=== PATIENT | male | born 1950 | race Caucasian/White ===

== ENCOUNTER 2017-10-19 15:41 | Observation (INO) ==
[2017-10-19] MEDS ORDERED: Aspirin 81 MG TAB.CHEW PO ONE (16:08)
[2017-10-19] MEDS ORDERED: Nitroglycerin 0.4 MG TAB.SUBL SL ONE (16:08)
--- NOTE | 2017-10-19 16:47 | Emergency Department Note ---
Disposition Clinical Impression: Unstable angina pectoris Disposition: Admitted As Inpatient Condition: Good Chest Pain HPI - General Chief Complaint: ED Chest Pain Stated Complaint: chest pain, weakness Time Seen by Provider: 10/19/17 15:59 Source: patient, family Limitations: no limitations Vital Signs Reviewed: Yes Nursing Notes Reviewed: Yes - History of Present Illness HPI Narrative: 67-year-old male with past history of diabetes, hypertension, thyroid disease, and CAD status post 2 drug-eluting stents placed on 01/23/17, presents to the emergency department with complaints of extreme exhaustion for several weeks and midsternal, intermittent chest pressure that began 2 days ago. He reports that the chest pressure is relieved when he takes nitroglycerin and only wants for a few minutes. The pain came on when he was at wrestling in bed. It is associated with diaphoresis, however there is no nausea, vomiting, or radiation of pain. Denies lower extremity edema. He is currently taking Plavix. He and his reporting a history of extreme exhaustion and generalized weakness for the past several weeks, with an unknown specific time of onset. reports that he will go to bed at 10 PM at night but then not get out of bed until 1 PM in the afternoon the next day. He reports that he just does not feel like getting up and doing anything at all. When he does get up and move his fatigue worsens, and he becomes more short of breath. He denies recent illness, fevers , chills, syncope, cough, abdominal pain, diarrhea, constipation, or dysuria. Severity scale (1-10): 0 - Related Data Home Medications Medication Instructions Recorded Confirmed Aripiprazole [Abilify] 7.5 mg PO DAILY 01/23/17 10/20/17 Calcium Carbonate/Vitamin D3 1 each PO DAILY 01/23/17 10/20/17 [Oyster Shell Calcium-Vit D Tab] Lactobacillus Acidophilus 1 each PO DAILY 01/23/17 10/20/17 [Acidophilus Lactobacillus] Levothyroxine [Synthroid] [place] [address]/23/17 10/20/17 Metformin HCl [Fortamet] 1,000 mg PO DAILY 01/23/17 10/20/17 Metoprolol Succinate 25 mg PO DAILY 01/23/17 10/20/17 Omeprazole 20 mg PO DAILY 01/23/17 10/20/17 Oxycodone HCl [Oxaydo] 10 mg PO QID 01/23/17 10/20/17 glipiZIDE [Glipizide ER] 10 mg PO DAILY 01/23/17 10/20/17 Duloxetine HCl [Cymbalta] 120 mg PO DAILY 10/19/17 10/20/17 Gemfibrozil [Lopid] 600 mg PO BID 10/19/17 10/20/17 Baclofen [Lioresal] 10 mg PO QID PRN 10/20/17 10/20/17 Lactobacillus Acidophilus 1 cap PO BID 10/20/17 10/20/17 [Acidophilus Lactobacillus] Lisinopril-HCTZ 10-12.5 [Prinzide 1 tab PO DAILY 10/20/17 10/20/17 10-12.5] Nitroglycerin [Nitrostat] 0.4 mg SL Q5M PRN 10/20/17 10/20/17 Previous Rx's Medication Instructions Recorded Acetaminophen [Tylenol] 650 mg PO Q6HR PRN #0 tablet 01/24/17 Aspirin 81 mg PO DAILY #30 tab.chew 01/24/17 Clopidogrel [Plavix] 75 mg PO DAILY #30 tablet 01/24/17 Allergies Allergy/AdvReac Type Severity Reaction Status Date / Time midazolam [From Versed] AdvReac See Verified 01/23/17 07:45 Comments morphine AdvReac Nausea Verified 01/23/17 07:45 All systems ED: reviewed and negative except as stated. Review of Systems: As Per HPI Chest Pain PMH - Past Medical History Medical history: Reports: diabetes, hypertension, thyroid disease Psychiatric history: Reports: anxiety, depression - Social History Smoking Status: Former smoker Alcohol use: Reports: none Drug use: Reports: none Physical Exam - General Limitations: no limitations General appearance: alert, in no apparent distress - Head Head exam: atraumatic, normocephalic - Eye Eye exam: Present: normal appearance, EOMI - ENT ENT exam: mucous membranes dry - Chest Chest inspection: Present: symmetric chest wall rise - Respiratory Respiratory exam: Present: normal lung sounds bilaterally - Cardiovascular Cardiovascular exam: Present: regular rate, normal rhythm, +S1, +S2 - Abdominal Exam Abdominal exam: Present: soft, Non-Tender, normal bowel sounds - Extremities Exam Extremities exam: Present: normal inspection, normal capillary refill. Absent: tenderness, pedal edema - Neurological Exam Neurological exam: Present: alert, oriented X3 - Skin Skin exam: Present: warm, dry, intact Course Vital Signs Temperature 98.5 F 10/19/17 15:47 Pulse Rate 108 10/19/17 15:47 Respiratory Rate 18 10/19/17 15:47 Blood Pressure 114/79 10/19/17 15:47 O2 Sat by Pulse Oximetry 98 10/19/17 15:47 Temperature 98.4 F 10/20/17 15:32 Pulse Rate 92 10/20/17 15:32 Respiratory Rate 16 10/20/17 15:32 Blood Pressure 119/76 10/20/17 15:32 O2 Sat by Pulse Oximetry 96 10/20/17 15:32 Oxygen Delivery Oxygen Delivery Room Air Chest Pain - MDM Narrative Medical decision making narrative: Patient's symptoms consistent with unstable angina, and concerning for worsening of his cardiac status with the amount of fatigue he has been feeling over the past several weeks. He received aspirin here in the ED. Nitroglycerin was ordered but not given because the patient was no longer complaining of active chest pain. ECG shows sinus tachycardia with first- degree heart block, no ST changes or T-wave changes, normal QRS morphology. Troponin negative. CBC, coags, and CMP are all unremarkable. Patient will be admitted to the hospital for further evaluation and treatment. - Lab Data Lab results reviewed: Yes I reviewed the patient's lab results. Result diagrams: 10/20/17 06:14 10/20/17 06:14 Lab Results 10/19/17 10/19/17 10/19/17 Range/Units 16:26 16:26 16:26 WBC 8.3 (4.3-11.1) K/mcL RBC 4.82 (4.19-5.50) M/mcL Hgb 15.3 (12.9-16.9) g/dL Hct 44.9 (37.5-50.1) % MCV 93.2 (83.0-100.0) fL MCH 31.7 (28.0-33.3) pg MCHC 34.1 (31.6-35.5) g/dL RDW 13.0 (11.5-14.5) % Plt Count 307 (140-400) K/mcL MPV 9.4 (9.4-12.4) fL Immature Gran % 0.5 (0-4) % Seg Neutrophils % 66.8 % Lymphocytes % 26.0 % Monocytes % 5.7 % Eosinophils % 0.6 % Basophils % 0.4 % Neutrophils # 5.5 (1.6-8.9) K/mcL Lymphocytes # 2.2 (0.6-4.6) K/mcL Monocytes # 0.5 (0.0-1.3) K/mcL Eosinophils # 0.1 (0.0-0.6) K/mcL Basophils # 0.0 (0.0-0.2) K/mcL PT 12.0 (9.4-12.1) Seconds INR 1.1 APTT 32.9 (26.0-36.0) Seconds Sodium (136-145) mEq/L Potassium (3.5-5.1) mEq/L Chloride (98-107) mEq/L Carbon Dioxide (23-29) mEq/L BUN (8-23) mg/dL Creatinine (0.70-1.30) mg/dL Est GFR ( Amer) (> 60) Est GFR (Non-Af Amer) (> 60) BUN/Creatinine Ratio (6-26) Glucose (70-105) mg/dL Calculated Osmolality (280-300) Calcium (8.6-10.3) mg/dL Total Bilirubin (0.3-1.0) mg/dL Direct Bilirubin (0.0-0.2) mg/dL Indirect Bilirubin (0.0-1.2) mg/dL AST (13-39) Units/L ALT (7-52) Units/L Alkaline Phosphatase (34-104) Units/L Troponin I (< 0.04) ng/mL B-Natriuretic Peptide 9 (Less than 100) pg/mL Serum Total Protein (6.4-8.9) g/dL Albumin (3.5-5.7) g/dL Globulin (2.4-3.5) g/dL Albumin/Globulin Ratio (1.1-2.2) Lipase (11-82) Units/L Urine Color (Yellow) Urine Clarity (Clear) Urine pH (5.0-8.0) pH Units Ur Specific [place] (1.010-1.025) Urine Protein (Neg-Trace) mg/dL Urine Glucose (UA) (Normal) mg/dL Urine Ketones (Negative) mg/dL Urine Blood (Negative) Urine Nitrite (Negative) Urine Bilirubin (Negative) Urine Urobilinogen (Normal) mg/dL Ur Leukocyte Esterase (Negative) Ur Culture Indicated? (NO) 10/19/17 10/19/17 Range/Units 16:26 18:15 WBC (4.3-11.1) K/mcL RBC (4.19-5.50) M/mcL Hgb (12.9-16.9) g/dL Hct (37.5-50.1) % MCV (83.0-100.0) fL MCH (28.0-33.3) pg MCHC (31.6-35.5) g/dL RDW (11.5-14.5) % Plt Count (140-400) K/mcL MPV (9.4-12.4) fL Immature Gran % (0-4) % Seg Neutrophils % % Lymphocytes % % Monocytes % % Eosinophils % % Basophils % % Neutrophils # (1.6-8.9) K/mcL Lymphocytes # (0.6-4.6) K/mcL Monocytes # (0.0-1.3) K/mcL Eosinophils # (0.0-0.6) K/mcL Basophils # (0.0-0.2) K/mcL PT (9.4-12.1) Seconds INR APTT (26.0-36.0) Seconds Sodium 133 L (136-145) mEq/L Potassium 3.8 (3.5-5.1) mEq/L Chloride 99 (98-107) mEq/L Carbon Dioxide 24 (23-29) mEq/L BUN 19 (8-23) mg/dL Creatinine 0.98 (0.70-1.30) mg/dL Est GFR ( Amer) > 60 (> 60) Est GFR (Non-Af Amer) > 60 (> 60) BUN/Creatinine Ratio 19 (6-26) Glucose 226 H (70-105) mg/dL Calculated Osmolality 285 (280-300) Calcium 10.0 (8.6-10.3) mg/dL Total Bilirubin 0.9 (0.3-1.0) mg/dL Direct Bilirubin 0.3 H (0.0-0.2) mg/dL Indirect Bilirubin 0.6 (0.0-1.2) mg/dL AST 32 (13-39) Units/L ALT 35 (7-52) Units/L Alkaline Phosphatase 48 (34-104) Units/L Troponin I < 0.03 (< 0.04) ng/mL B-Natriuretic Peptide (Less than 100) pg/mL Serum Total Protein 7.7 (6.4-8.9) g/dL Albumin 4.6 (3.5-5.7) g/dL Globulin 3.1 (2.4-3.5) g/dL Albumin/Globulin Ratio 1.5 (1.1-2.2) Lipase 3 L (11-82) Units/L Urine Color Yellow (Yellow) Urine Clarity Clear (Clear) Urine pH 6.0 (5.0-8.0) pH Units Ur Specific [place] 1.020 (1.010-1.025) Urine Protein Negative (Neg-Trace) mg/dL Urine Glucose (UA) Normal (Normal) mg/dL Urine Ketones Negative (Negative) mg/dL Urine Blood Negative (Negative) Urine Nitrite Negative (Negative) Urine Bilirubin Negative (Negative) Urine Urobilinogen Normal (Normal) mg/dL Ur Leukocyte Esterase Negative (Negative) Ur Culture Indicated? NO (NO) - EKG Data EKG attestation: Yes I reviewed and interpreted this EKG. EKG results narrative: ECG shows sinus tachycardia with first-degree heart block, no ST changes or T- wave changes, normal QRS morphology. Heart Score - Score History: Moderately Suspicious EKG: Normal Age: Greater than 65 Risk Factors: Equal/Greater than 3 risk factor or history of atherosclerotic disease Troponin: Less than normal limit HEART Score Total: 5 Attestation Statement - Attestation Attestation: I examined this patient and my medical decision-making was reviewed with the Resident Physician, Dr. Pinedo. I agree with the documented findings, disposition and treatment plan as described except to the extent set forth below. Pt is a 67 yo wm, hx of CAD with prior stents, and DM, HTN, presenting with exer dyspnea, worsening fatigue and chest pain with exertion. Chest pain free on arrival. I agree with pt's PE findings, VSS. EKG with no acute ischemia. CXR wnl. Labs wnl. Will admit for further eval.
[2017-10-19 16:50] LABS: Hematocrit 44.9 % (37.5-50.1); Hemoglobin 15.3 g/dL (12.9-16.9); Immature Granulocytes % 0.5 % (0-4); Mean Corpuscular HGB Conc 34.1 g/dL (31.6-35.5); Mean Corpuscular Hemoglobin 31.7 pg (28.0-33.3); Mean Corpuscular Volume 93.2 fL (83.0-100.0); Mean Platelet Volume 9.4 fL (9.4-12.4); Monocytes % 5.7 %; Platelet Count 307 K/mcL (140-400); Red Blood Count 4.82 M/mcL (4.19-5.50); Segmented Neutrophils % 66.8 %
[2017-10-19 16:51] LABS: Basophils % 0.4 %; Eosinophils # 0.1 K/mcL (0.0-0.6); Eosinophils % 0.6 %; Lymphocytes # 2.2 K/mcL (0.6-4.6); Monocytes # 0.5 K/mcL (0.0-1.3); Neutrophils # 5.5 K/mcL (1.6-8.9)
[2017-10-19 16:56] LABS: INR 1.1
[2017-10-19 16:58] LABS: Activated Partial Thrombo Time 32.9 Seconds (26.0-36.0)
[2017-10-19 17:20] LABS: Troponin I < 0.03 ng/mL (< 0.04)
[2017-10-19 17:22] LABS: Alanine Aminotransferase 35 Units/L (7-52); Albumin 4.6 g/dL (3.5-5.7); Albumin/Globulin Ratio 1.5 (1.1-2.2); Alkaline Phosphatase 48 Units/L (34-104); Aspartate Amino Transferase 32 Units/L (13-39); BUN/Creatinine Ratio 19 (6-26); Bilirubin,Direct 0.3 mg/dL (0.0-0.2); Bilirubin,Indirect 0.6 mg/dL (0.0-1.2); Bilirubin,Total 0.9 mg/dL (0.3-1.0); Blood Urea Nitrogen 19 mg/dL (8-23); Carbon Dioxide 24 mEq/L (23-29); Chloride 99 mEq/L (98-107); Globulin 3.1 g/dL (2.4-3.5); Glucose 226 mg/dL (70-105); Lipase 3 Units/L (11-82); Osmolality,Calculated 285 (280-300); Potassium 3.8 mEq/L (3.5-5.1); Sodium 133 mEq/L (136-145); Total Protein 7.7 g/dL (6.4-8.9); eGFR For African Americans > 60 (> 60); eGFR For Non-African Americans > 60 (> 60)
[2017-10-19 18:38] LABS: Bilirubin,Urine Negative (Negative); Blood,Urine Negative (Negative); Clarity,Urine Clear (Clear); Color,Urine Yellow (Yellow); Glucose,Urine (UA) Normal (Normal); Ketones,Urine Negative (Negative); Leukocyte Esterase,Urine Negative (Negative); Nitrite,Urine Negative (Negative); Protein,Urine Negative (Neg-Trace); Urobilinogen,Urine Normal (Normal)
[2017-10-19] MEDS ORDERED: Acetaminophen 325 MG TABLET PO PRN (22:54)
[2017-10-19] MEDS ORDERED: Naloxone 0.4 MG/ML INJ IVP PRN (22:54)
[2017-10-19] MEDS ORDERED: *HR* HYDROcodone/Acet 5/325 mg TABLET PO PRN (22:54)
[2017-10-19] MEDS ORDERED: Dextrose Gel 15 GM/37.5 ML TUBE PO PRN ×2 (23:05)
[2017-10-19] MEDS ORDERED: *HR* Dextrose 50 % in Water (Syg) 50 ML SYRINGE IVP PRN (23:05)
[2017-10-19] MEDS ORDERED: D5% in Water 1,000 ML IVC PRN (23:05)
--- NOTE | 2017-10-19 23:07 | Internal Med History&Physical ---
Date of Encounter: 10/19/17 Time of Encounter: 23:05 Assessment and Plan (1) Chest pain Current visit: Yes Status: Acute 67/male Multiple comorbid conditions. Admitted with chest pain. X-ray chest: No acute process EKG: Nonspecific ST-T changes Troponin: First set negative Cardiac catheterization: 01/2017: Stent with PTCA single major vessel proximal RCA, mid left circumflex, EF 50% Plan: Admitted as an observation. Aspirin/beta candie/cholesterol-lowering medication. Continue Plavix. Cycle troponin. Resume home medication. If troponin positive/his pain persistent: Consider calling cardiology tomorrow. I have examined this patient in 3 B 35 Plan of care explained to the patient at length. Patient verbalized understanding. Qualifiers: Chest pain type: unspecified Qualified Code(s): R07.9 - Chest pain, unspecified (2) Diabetes mellitus Current visit: Yes Status: Acute He is known to have diabetes mellitus. We will hold antidiabetic oral medications. We will follow the recommendations from subcutaneous insulin order set. 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 We will resume home medication. Qualifiers: Hypertension type: essential hypertension Qualified Code(s): I10 - Essential (primary) hypertension (4) Dyslipidemia Current visit: Yes Status: Acute Patient's lipid panel is scheduled to draw tomorrow morning. We will restart patient home medication. (5) DVT prophylaxis Current visit: Yes Status: Acute SCD Medical's in making: This patient is a moderate to severe risk of worsening in spite of being on appropriate medication due to the chronic underlying comorbid conditions. Internal Medicine - H&P: HPI Chief complaint: chest pain Admitted From: Emergency Dept Plans for Post Hospital Care: Home History of present illness: PCP: SUSANA Brizuela Cardiology: Dr Herbert Craven Brief PMH: DM, HTN, Dyslipidemia, CAD, Previous Stents placement. HPI: Patient was complaining of ongoing left-sided precordial chest pain. Pain was radiating to back. The pain is sharp in nature and associated with occasional nausea. Patient claims that he had a similar pain when he had a previously DE. Patient was concerned about this pain and that is why he decided to come to emergency room for further evaluation. Patient denies shortness of breath, abdominal pain, nausea, vomiting, dizziness and diarrhea. Workup in the emergency room: Patient was evaluated in the emergency room. Basic labs were drawn. X-ray chest was negative for any acute process. First troponin was negative. Reason for admission: Chest pain to rule out ACS. Heart score 4 Family history: Noncontributory Past Med Surg Social Fam HX - Past Medical History Medical history: diabetes, hypertension, thyroid disease Psychiatric history: anxiety, depression - Social History Smoking Status: Former smoker Smokeless Tobacco Status: No Alcohol use: none Drug use: none - Family History Father Living Status: Hx Family Cardiac Disorders: Yes (DE) Mother Living Status: Hx Family Cardiac Disorders: Yes Hx Family Neuromuscular Disorders: Yes (Stroke) Brother Living Status: Hx Family Endocrine Disorder: Yes (DM) Internal Medicine - H&P: Meds Aripiprazole [Abilify] 15 mg PO DAILY 01/23/17 [History] Calcium Carbonate/Vitamin D3 [Oyster Shell Calcium-Vit D Tab] 1 each PO DAILY [History] Gabapentin [Gralise] 600 mg PO BID 01/23/17 [History] Lactobacillus Acidophilus [Acidophilus Lactobacillus] 1 each PO DAILY 01/23/17 [ History] Levothyroxine [Synthroid] 50 mcg PO 0630 01/23/17 [History] Lisinopril-HCTZ 20-12.5 [Prinzide 20-12.5] 1 each PO DAILY 01/23/17 [History] Melatonin [Melatin] 10 mg PO HS 01/23/17 [History] Metformin HCl [Fortamet] 1,000 mg PO DAILY 01/23/17 [History] Metoprolol Succinate 25 mg PO DAILY 01/23/17 [History] Omeprazole 20 mg PO DAILY 01/23/17 [History] Oxycodone HCl [Oxaydo] 15 mg PO BID 01/23/17 [History] glipiZIDE [Glipizide ER] 10 mg PO DAILY 01/23/17 [History] Acetaminophen [Tylenol] 650 mg PO Q6HR PRN #0 tablet 01/24/17 [Rx] Aspirin 81 mg PO DAILY #30 tab.chew 01/24/17 [Rx] Clopidogrel [Plavix] 75 mg PO DAILY #30 tablet 01/24/17 [Rx] Aripiprazole [Abilify] 7.5 mg PO 10/19/17 [History] Duloxetine HCl [Cymbalta] 120 mg PO 10/19/17 [History] Gemfibrozil [Lopid] 600 mg PO BID 10/19/17 [History] 3 Allergy/AdvReac Type Severity Reaction Status Date / Time midazolam [From Versed] AdvReac See Verified 01/23/17 07:45 Comments morphine AdvReac Nausea Verified 01/23/17 07:45 All Systems PM: A 10-system review of systems was performed and is negative for pertinent findings except as documented above in the HPI. - Constitutional Constitutional: no chills, no fever(s), no night sweats - EENT Eyes: no change in vision, no discharge, no pain, no photophobia Ears: no ear discharge, no ear pain, no tinnitus Nose, mouth and throat: no dysphagia, no nasal discharge, no neck pain, no sore throat - Cardiovascular Cardiovascular ROS IM: chest pain, diaphoresis, lightheadedness, no dyspnea, no palpitations, no syncope - Respiratory Respiratory: no cough, no dyspnea, no wheezing, no excessive phlegm production - Gastrointestinal Gastrointestinal: no abdominal pain, no diarrhea, no hematemesis, no hematochezia, no melena, no nausea, no vomiting - Musculoskeletal Musculoskeletal ROS IM: no numbness, no tingling - Integumentary Integumentary IM: no rash, no unusual bruising - Neurological Neurological ROS: no confusion, no convulsions, no focal weakness, no numbness, no tingling, no tremor(s) - Hematologic/Lymphatic Hematologic/Lymphatic: no easy bruising - Constitutional Vitals: Temp Pulse Resp BP Pulse Ox 97.5 F L 91 15 102/61 95 10/19/17 23:03 10/19/17 23:03 10/19/17 23:03 10/19/17 23:03 10/19/17 23:03 General appearance: Present: A&O X 3, pleasant, no acute distress - Head Head exam: Present: atraumatic, normocephalic - Eye Eye exam: Present: PERRL, conjuntiva pink, sclera anicteric Pupils: Present: PERRL - Neck Neck exam general surgery: Present: supple, trachea midline. Absent: lymphadenopathy - Respiratory Respiratory exam: Present: CTAB. Absent: accessory muscle use, rales, rhonchi, wheezes - Cardiovascular Cardiovascular exam: Present: RRR, +S1, +S2. Absent: diastolic murmur, gallop, rubs, systolic murmur - GI/Abdominal GI/Abdominal exam: Present: normal bowel sounds, soft, no peritoneal signs. Absent: distended, tenderness - Extremities Exam Extremities exam: Present: warm, radial pulses palpable and symmetrical. Absent : calf tenderness, cyanotic, pedal edema - Neurological Exam Neurological exam: Present: CN II-XII intact, oriented X3, no focal deficits. Absent: pronater drift, facial droop, speech deficit - Skin Skin exam: Present: dry, intact Internal Med - H&P Results - Labs CBC & Chem 7: 10/19/17 16:26 10/19/17 16:26
[2017-10-19] MEDS: *HR* OxyCODONE Immed Rel 5 MG TABLET PO PRN (23:16)
[2017-10-19] MEDS ORDERED: ARIPiprazole 5 MG TABLET PO SCH (23:30)
[2017-10-19] MEDS ORDERED: Melatonin 3 MG TABLET PO SCH (23:30)
[2017-10-19] MEDS: Gabapentin 300 MG CAPSULE PO SCH (23:38)
[2017-10-20 08:08] LABS: INR 1.1; Prothrombin Time 11.5 Seconds (9.4-12.1)
[2017-10-20 08:11] LABS: Activated Partial Thrombo Time 31.8 Seconds (26.0-36.0)
[2017-10-20 08:14] LABS: Basophils % 0.3 %; Eosinophils # 0.1 K/mcL (0.0-0.6); Eosinophils % 1.4 %; Hematocrit 44.9 % (37.5-50.1); Hemoglobin 15.1 g/dL (12.9-16.9); Immature Granulocytes % 0.3 % (0-4); Lymphocytes # 4.4 K/mcL (0.6-4.6); Lymphocytes % 43.6 %; Mean Corpuscular HGB Conc 33.6 g/dL (31.6-35.5); Mean Corpuscular Hemoglobin 31.7 pg (28.0-33.3); Mean Corpuscular Volume 94.3 fL (83.0-100.0); Mean Platelet Volume 9.9 fL (9.4-12.4); Monocytes # 0.7 K/mcL (0.0-1.3); Monocytes % 7.3 %; Neutrophils # 4.8 K/mcL (1.6-8.9); Platelet Count 293 K/mcL (140-400); Red Blood Count 4.76 M/mcL (4.19-5.50); Red Cell Distribution Width 13.1 % (11.5-14.5); Segmented Neutrophils % 47.1 %
[2017-10-20] MEDS ORDERED: Lisinopril-HCTZ 20-12.5mg TABLET PO SCH (09:00)
[2017-10-20] MEDS ORDERED: Metoprolol XL (24 HR) Succ 25 MG TAB.ER.24H PO SCH (09:00)
[2017-10-20] MEDS ORDERED: Aspirin 81 MG TAB.CHEW PO SCH (09:00)
[2017-10-20] MEDS ORDERED: Lactobacillus 1 EACH CAP.SPRINK PO SCH (09:00)
[2017-10-20 09:08] LABS: Alanine Aminotransferase 31 Units/L (7-52); Albumin 4.3 g/dL (3.5-5.7); Albumin/Globulin Ratio 1.5 (1.1-2.2); Alkaline Phosphatase 49 Units/L (34-104); Aspartate Amino Transferase 29 Units/L (13-39); BUN/Creatinine Ratio 17 (6-26); Bilirubin,Total 0.7 mg/dL (0.3-1.0); Blood Urea Nitrogen 17 mg/dL (8-23); Carbon Dioxide 25 mEq/L (23-29); Chloride 101 mEq/L (98-107); Chol/HDL Ratio 7.4 (0-4.9); Cholesterol 177 mg/dL (< 200); Globulin 2.9 g/dL (2.4-3.5); Glucose 119 mg/dL (70-105); HDL Cholesterol 24 mg/dL (40-59); LDL Cholesterol,Calculated 123 mg/dL (0-99); Osmolality,Calculated 289 (280-300); Phosphorous 3.9 mg/dL (2.7-4.5); Potassium 3.6 mEq/L (3.5-5.1); Sodium 138 mEq/L (136-145); Total Protein 7.2 g/dL (6.4-8.9); Triglycerides 148 mg/dL (< 150); eGFR For African Americans > 60 (> 60); eGFR For Non-African Americans > 60 (> 60)
[2017-10-20] MEDS: Insulin LISPRO 300 UNITS/3 ML VIAL SQ SCH ×2 (10:22→11:24)
[2017-10-20] MEDS: Gabapentin 300 MG CAPSULE PO SCH (10:23)
[2017-10-20] MEDS ORDERED: Regadenoson 0.4 MG/5 ML SYRINGE IVP ONE (12:38)
[2017-10-20] MEDS: *HR* OxyCODONE Immed Rel 5 MG TABLET PO PRN (14:56)
[2017-10-20 15:35] VITALS: BP 119/76
--- NOTE | 2017-10-20 16:30 | Discharge Summary ---
- NOTES TO OUTPATIENT PROVIDER Notes to Outpatient Provider: Nuclear stress test is negative for ischemia or infarct. Patient and have many concerns about the way he is feeling. Defer to primary care physician and they have close follow-up with neurology regarding his other issues. Orders not resulted at time of discharge: Pending orders 10/20/17 08:27 NM blue perf SPECT multi [NM] Routine Date of Encounter: 10/20/17 Time of Encounter: 16:27 - Discharge Diagnosis (1) Chest pain Priority: Primary Status: Acute Comments: Patient with a known history of CAD with stents from January 2017. Troponins have been negative. Chest x-ray was negative. He does have comorbidities of diabetes and hypertension. Nuclear stress test was reviewed Pharmacological stress ECG is negative for ischemia at the level of the heart rate achieved. Gated EF equals 73%. Perfusion imaging was negative for ischemia or infarct. Patient discharged and will follow up with his primary care physician Qualifiers: Chest pain type: unspecified Qualified Code(s): R07.9 - Chest pain, unspecified (2) Diabetes mellitus Priority: Primary Status: Chronic Comments: Resume home medications Qualifiers: Diabetes mellitus type: type 2 Diabetes mellitus complication status: with unspecified complications Diabetes mellitus half-way insulin use: unspecified half-way insulin use status Qualified Code(s): E11.8 - Type 2 diabetes mellitus with unspecified complications (3) Dyslipidemia Priority: Primary Status: Chronic Comments: Continue patient's home medication Lipid panel reviewed with cholesterol 177, LDL 123, VLDL 30, HDL 24 and ratio 7.4 (4) Hypertension Priority: Primary Status: Chronic Comments: Blood pressure is stable continue her medications on discharge Qualifiers: Hypertension type: essential hypertension Qualified Code(s): I10 - Essential (primary) hypertension Hospital course: Mr. Maxwell is a 67 year old male admitted with chest pain with multiple comorbidities Ver[place]. X-ray of the chest with no acute process, EKG nonspecific ST-T changes. Troponins were negative. Cardiac catheterization from 01/2017 was stent with PTCA single major vessel proximal RCA, mid left circumflex, EF 50%. Continue aspirin and beta candie and cholesterol lowering medications. Continue Plavix. Discussed with cardiology and they recommended he go to stress that was obtained and was negative for infarct or ischemia and the patient was discharged home with a sister and said today his stress test was negative - Time Spent with Patient Total time spent providing and/or coordinating discharge services: Less than 30 minutes - Discharge Medications Home Medications: Aripiprazole [Abilify] 7.5 mg PO DAILY 01/23/17 [History] Calcium Carbonate/Vitamin D3 [Oyster Shell Calcium-Vit D Tab] 1 each PO DAILY [History] Lactobacillus Acidophilus [Acidophilus Lactobacillus] 1 each PO DAILY 01/23/17 [ History] Levothyroxine [Synthroid] 50 mcg PO 30 01/23/17 [History] Metformin HCl [Fortamet] 1,000 mg PO DAILY 01/23/17 [History] Metoprolol Succinate 25 mg PO DAILY 01/23/17 [History] Omeprazole 20 mg PO DAILY 01/23/17 [History] Oxycodone HCl [Oxaydo] 10 mg PO QID 01/23/17 [History] glipiZIDE [Glipizide ER] 10 mg PO DAILY 01/23/17 [History] Acetaminophen [Tylenol] 650 mg PO Q6HR PRN #0 tablet 01/24/17 [Rx] Aspirin 81 mg PO DAILY #30 tab.chew 01/24/17 [Rx] Clopidogrel [Plavix] 75 mg PO DAILY #30 tablet 01/24/17 [Rx] Duloxetine HCl [Cymbalta] 120 mg PO DAILY 10/19/17 [History] Gemfibrozil [Lopid] 600 mg PO BID 10/19/17 [History] Baclofen [Lioresal] 10 mg PO QID PRN 10/20/17 [History] Lactobacillus Acidophilus [Acidophilus Lactobacillus] 1 cap PO BID 10/20/17 [ History] Lisinopril-HCTZ 10-12.5 [Prinzide 10-12.5] 1 tab PO DAILY 10/20/17 [History] Nitroglycerin [Nitrostat] 0.4 mg SL Q5M PRN 10/20/17 [History] Allergies/Adverse Reactions: 3 Allergy/AdvReac Type Severity Reaction Status Date / Time midazolam [From Versed] AdvReac See Verified 01/23/17 07:45 Comments morphine AdvReac Nausea Verified 01/23/17 07:45 Date of admission: 10/19/17 19:36 Primary care physician: [facility] Discharging clinician: dominique fletcher Anticipated date of discharge: 10/20/17 - Constitutional Vitals: Temp Pulse Resp BP Pulse Ox 98.4 F 92 16 119/76 96 10/20/17 15:32 10/20/17 15:32 10/20/17 15:32 10/20/17 15:32 10/20/17 15:32 General appearance: Present: cooperative, A&O X 3, pleasant, answers questions appropriately - Head Head exam: Present: atraumatic, normocephalic - Eye Eye exam: Present: PERRL, conjuntiva pink, sclera anicteric Pupils: Present: PERRL - Neck Neck exam general surgery: Present: supple, trachea midline. Absent: lymphadenopathy - Respiratory Respiratory exam: Present: CTAB. Absent: accessory muscle use, rales, rhonchi, wheezes - Cardiovascular Cardiovascular exam: Present: RRR, +S1, +S2. Absent: diastolic murmur, gallop, rubs, systolic murmur - GI/Abdominal GI/Abdominal exam: Present: normal bowel sounds, soft, no peritoneal signs. Absent: distended, tenderness - Extremities Exam Extremities exam: Present: warm, radial pulses palpable and symmetrical. Absent : calf tenderness, cyanotic, pedal edema - Neurological Exam Neurological exam: Present: CN II-XII intact, oriented X3, no focal deficits. Absent: pronater drift, facial droop, speech deficit - Skin Skin exam: Present: dry, intact, normal color, warm - Patient Status Disposition: Home, Self-Care Condition: Good Functional capacity at discharge: independent ambulation Overall status at discharge: patient is back to baseline - Discharge Instructions Instructions: Chest Pain (DC), Diabetes Mellitus Type 2 in Adults (DC), Chronic Hypertension (DC) Follow [facility]: [facility] [Primary Care Provider[facility] - - Diet and Activity Activity: increase activity as tolerated, resume usual activities as tolerated Diet: advance to your usual diet
--- NOTE | 2017-10-21 18:08 | Electrocardiograph Report ---
[place] [id number] Test Date: 2017-10-19 Pat Name: Anayeli Maxwell Department: 104 Room: 3B Gender: M [employer] A Driver: [facility] : 1950 Requested By: Abigail Narvaez Order Number: [id number] Reading MD: Rhianna Martinez Measurements Intervals [place] Rate: 105 P: 28 LA: 245 QRS: 30 QRSD: 96 T: 29 QT: 324 QTc: 385 Interpretive Statements SINUS TACHYCARDIA WITH FIRST DEGREE AV BLOCK Electronically Signed On 10-21-2017 18:07:20 EST by Rhianna Martinez
== END 2017-10-20 17:02 | disposition home or self-care (01) ==
LOC: 3BNU 15:41 → EMEROO 15:41 → 3BNU 20:15 → SUATTDRO 23:24 → 3BNU 10-20 15:12
PROVIDERS: ADMIT Internal Medicine; ATTEND Nurse Practitioner Family

== ENCOUNTER 2017-11-27 14:14 | Observation (INO) ==
[2017-11-27] MEDS ORDERED: 0.9 % Sodium Chloride 1,000 ML IVC ONE (14:16)
--- NOTE | 2017-11-27 14:20 | Emergency Department Note ---
Disposition Clinical Impression: Delirium, Generalized weakness Disposition: Admitted As Inpatient Condition: Undetermined [facility]Primary Care Provider[facility] - Forms: ED Satisfaction Letter Time of Disposition: 17:36 Neuro HPI - General Chief Complaint: ED Neuro Symptoms/Deficit Stated Complaint: weakness Time Seen by Provider: 11/27/17 14:16 Source: patient, family, EMS Mode of arrival: EMS Limitations: altered mental status Nursing Notes Reviewed: Yes Vital Signs Reviewed: Yes - History of Present Illness HPI Narrative: 67-year-old male with history of diabetes, hypertension, arrives to the emergency department with complaint of alteration in mentation, foul smelling urine and generalized weakness. The patient's significant other noted that this all began this morning unknown exactly what time and the patient was not quite acting right. He is having some difficulty expressing exactly the way he feels or what is going on but states from his that this is not unusual for him. She is more concerned because the patient is very tearful and does not really understand what is occurring at this time. He denies any chest pain, difficulty breathing, abdominal pain. The patient notes that he again is having some difficulty expressing what he wants to say but is still able to convey it. Patient denies any numbness, tingling, weakness on one side or the other, headache, fever, chills. His continues to note that the patient does have foul-smelling urine. - Related Data Home Medications: Home Medications Medication Instructions Recorded Confirmed Aripiprazole [Abilify] 7.5 mg PO DAILY 01/23/17 10/20/17 Calcium Carbonate/Vitamin D3 1 each PO DAILY 01/23/17 10/20/17 [Oyster Shell Calcium-Vit D Tab] Metformin HCl [Fortamet] 1,000 mg PO DAILY 01/23/17 10/20/17 Metoprolol Succinate 25 mg PO DAILY 01/23/17 10/20/17 Omeprazole 20 mg PO DAILY 01/23/17 10/20/17 Duloxetine HCl [Cymbalta] 120 mg PO DAILY 10/19/17 10/20/17 Gemfibrozil [Lopid] 600 mg PO BID 10/19/17 10/20/17 Lactobacillus Acidophilus 1 cap PO BID 10/20/17 10/20/17 [Acidophilus Lactobacillus] Lisinopril-HCTZ 10-12.5 [Prinzide 1 tab PO DAILY 10/20/17 10/20/17 10-12.5] Nitroglycerin [Nitrostat] 0.4 mg SL Q5M PRN 10/20/17 10/20/17 Aspirin Enteric Coated [Aspirin EC] 81 mg PO DAILY 11/27/17 11/27/17 Cholecalciferol (D-3) [Vitamin D] 1,000 unit PO DAILY 11/27/17 11/27/17 Donepezil [Aricept] 10 mg PO HS 11/27/17 11/27/17 Eszopiclone [Lunesta] 1 mg PO HS PRN 11/27/17 11/27/17 Gabapentin [Neurontin] 900 mg PO TID 11/27/17 11/27/17 Levothyroxine [Synthroid] 150 mcg PO QAM 11/27/17 11/27/17 Lidocaine 4% CRM (LMX) [Lmx 4] 1 appl TP DAILY PRN 11/27/17 11/27/17 Multivitamin [One Daily Essential] 1 each PO DAILY 11/27/17 11/27/17 OxyCODONE Immed Rel [Roxicodone 10 10 mg PO QID PRN 11/27/17 11/27/17 MG] Polyethylene Glycol 3350 [MiraLAX] 17 gm PO DAILY 11/27/17 11/27/17 Testosterone [Androgel] 40.5 mg TD AD 11/27/17 11/27/17 glipiZIDE [Glipizide] 10 mg PO QAM 11/27/17 11/27/17 Previous Rx's Medication Instructions Recorded Clopidogrel [Plavix] 75 mg PO DAILY #30 tablet 01/24/17 Allergies/Adverse Reactions: Allergies Allergy/AdvReac Type Severity Reaction Status Date / Time bupropion [From Wellbutrin] Allergy See Verified 11/27/17 16:47 Comments Zolpidem [From Ambien] Allergy See Verified 11/27/17 16:47 Comments midazolam [From Versed] AdvReac See Verified 01/23/17 07:45 Comments morphine AdvReac Nausea Verified 11/27/17 16:47 All systems ED: reviewed and negative except as stated. Constitutional: Reports: weakness. Denies: fever, chills ENT ED: Denies: congestion Cardiovascular: Denies: chest pain Respiratory: Denies: dyspnea Gastrointestinal: Denies: abdominal pain, nausea Genitourinary: Reports: dysuria, frequency. Denies: urgency, hematuria, testicular pain Musculoskeletal: Denies: back pain, neck pain, arthralgia, myalgia Integumentary: Denies: rash Neurological: Reports: weakness, confusion. Denies: headache, numbness, paresthesias, abnormal gait, vertigo Psychiatric: Reports: anxiety, depression. Denies: suicidal thoughts, homicidal thoughts, auditory hallucinations, visual hallucinations Past Medical History - Past Medical History Attestation: Yes The following information was validated with the patient. Source: patient, obtained from family Medical history: Reports: aortic aneurysm, diabetes, hypertension, thyroid disease Surgical history: Reports: non-contributory Psychiatric history: Reports: anxiety, depression - Social History Smoking Status: Former smoker Smokeless Tobacco Status: No Alcohol use: Reports: none Drug use: Reports: none Physical Exam - General Limitations: altered mental status (Mild) General appearance: alert, in no apparent distress, anxious - Head Head exam: atraumatic, normocephalic, normal inspection - Eye Eye exam: Present: normal appearance, PERRL, EOMI - ENT ENT exam: normal exam, normal oropharynx, mucous membranes moist - Neck Neck exam: Present: normal inspection, full ROM, trachea midline - Chest Chest inspection: Present: normal inspection, symmetric chest wall rise - Respiratory Respiratory exam: Present: normal lung sounds bilaterally - Cardiovascular Cardiovascular exam: Present: regular rate, normal rhythm - Abdominal Exam Abdominal exam: Present: soft, Non-Tender. Absent: tenderness, distention, guarding, rebound, rigidity - Extremities Exam Extremities exam: Present: normal inspection, full ROM. Absent: tenderness, pedal edema - Neurological Exam Neurological exam: Present: alert, oriented X3, CN II-XII intact. Absent: motor sensory deficit - Expanded Neurological Exam Patient oriented to: Present: person, place, time Speech: Present: fluid speech Cranial nerves: EOM function (II, III, IV, ): Normal, facial sensation (V): Normal, facial palsy (VII): Normal Motor strength - LUE: 4/5 Motor strength - RUE: 4/5 Motor strength - LLE: 4/5 Motor strength - RLE: 4/5 Sensory exam upper extremity: light touch: Normal Sensory exam lower extremity: light touch: Normal Coma Scale Eye Opening: Spontaneous Coma Scale Motor Response: Obeys Commands Coma Scale Verbal Response: Oriented Coma Scale Total: 15 - Skin Skin exam: Present: warm, dry, intact, normal color Course Vital Signs Temperature 97.8 F 11/27/17 14:15 Pulse Rate 99 11/27/17 14:15 Respiratory Rate 16 11/27/17 14:15 Blood Pressure 148/86 11/27/17 14:15 O2 Sat by Pulse Oximetry 94 11/27/17 14:15 Temperature 97.8 F 11/27/17 14:15 Pulse Rate 99 11/27/17 14:15 Respiratory Rate 16 11/27/17 14:15 Blood Pressure 148/86 11/27/17 14:15 O2 Sat by Pulse Oximetry 94 11/27/17 14:15 Oxygen Delivery Oxygen Delivery Room Air Neuro Symptoms/Deficit - MDM Narrative Medical decision making narrative: Patient's workup here in the emergency department demonstrates no acute findings to account for patient's symptoms. The patient had an NIH of 0 and his only symptom is really confusion and generalized weakness. CT of the head, chest x-ray demonstrated no acute process. The patient's lab work is unremarkable. Given the patient's generalized weakness and mild confusion that in etiology, we will admit the patient to the hospital for further workup and care. The patient's family was noted and agrees to plan. No further questions or concerns noted at this time. Accepted by Dr. Matthews. - Lab Data Lab results reviewed: Yes I reviewed the patient's lab results. Result diagrams: 11/27/17 14:26 11/27/17 14:26 Lab Results 11/27/17 11/27/17 11/27/17 Range/Units 14:26 14:26 15:33 WBC 9.5 (4.3-11.1) K/mcL RBC 4.45 (4.19-5.50) M/mcL Hgb 14.3 (12.9-16.9) g/dL Hct 42.0 (37.5-50.1) % MCV 94.4 (83.0-100.0) fL MCH 32.1 (28.0-33.3) pg MCHC 34.0 (31.6-35.5) g/dL RDW 12.6 (11.5-14.5) % Plt Count 302 (140-400) K/mcL MPV 9.1 L (9.4-12.4) fL Immature Gran % 0.3 (0-4) % Seg Neutrophils % 76.3 % Lymphocytes % 18.5 % Monocytes % 4.5 % Eosinophils % 0.2 % Basophils % 0.2 % Neutrophils # 7.3 (1.6-8.9) K/mcL Lymphocytes # 1.8 (0.6-4.6) K/mcL Monocytes # 0.4 (0.0-1.3) K/mcL Eosinophils # 0.0 (0.0-0.6) K/mcL Basophils # 0.0 (0.0-0.2) K/mcL Sodium 140 (136-145) mEq/L Potassium 4.0 (3.5-5.1) mEq/L Chloride 105 (98-107) mEq/L Carbon Dioxide 26 (23-29) mEq/L BUN 14 (8-23) mg/dL Creatinine 0.74 (0.70-1.30) mg/dL Est GFR ( Amer) > 60 (> 60) Est GFR (Non-Af Amer) > 60 (> 60) BUN/Creatinine Ratio 19 (6-26) Glucose 153 H (70-105) mg/dL Calculated Osmolality 294 (280-300) Calcium 9.9 (8.6-10.3) mg/dL Troponin I < 0.03 (< 0.04) ng/mL Urine Color Yellow (Yellow) Urine Clarity Cloudy A (Clear) Urine pH 7.0 (5.0-8.0) pH Units Ur Specific [place] 1.020 (1.010-1.025) Urine Protein Trace (Neg-Trace) mg/dL Urine Glucose (UA) Normal (Normal) mg/dL Urine Ketones Negative (Negative) mg/dL Urine Blood Negative (Negative) Urine Nitrite Negative (Negative) Urine Bilirubin Negative (Negative) Urine Urobilinogen Normal (Normal) mg/dL Ur Leukocyte Esterase Negative (Negative) Urine Microscopic RBC 3-5 H (0-3) per hpf Urine Microscopic WBC 0-3 (0-3) per hpf Ur Squamous Epith Cells Few (None-Few) per lpf Urine Bacteria None Seen (None-Few) per hpf Hyaline Casts None Seen (None-Few) per lpf Ur Culture Indicated? NO (NO) - Radiology Data Radiology results reviewed: Yes I reviewed the patient's radiology results. Chest X-Ray 11/27/17 14:17 IMPRESSION: No acute cardiopulmonary disease. D/ / Kody Christina MD / Kody Christina MD Interpreting Provider: Kody Christina MD Head CT 11/27/17 14:17 IMPRESSION: No acute intracranial abnormality. D/ / Lucian Park MD / Lucian Park MD Interpreting Provider: Lucian Park MD - EKG Data EKG attestation: Yes I reviewed and interpreted this EKG. EKG results narrative: Heart rate 70 bpm. Normal sinus rhythm. No ST elevation or ST depression noted. Similar morphology to EKG from 10/21/2017. No other acute changes noted. Previous EKG demonstrates numerous PVCs that are multifocal. NIH Stroke Scale - Level of Consciousness LOC: Alert - LOC Questions LOC Questions: Answers both correctly - LOC Commands LOC Commands: Performs both correctly - Best Gaze Best Gaze: Normal - Visual Visual: No visual loss - Facial Palsy Facial Palsy: Normal - Motor Arms Motor Arm-Left: No drift for 10 seconds Motor Arm-Right: No drift for 10 seconds - Motor Legs Motor Leg-Left: No drift for 5 seconds Motor Leg-Right: No drift for 5 seconds - Limb Ataxia Limb Ataxia: Normal, No Ataxia - Sensory Sensory: Normal - Best Language Best Language: No aphasia - Dysarthria Dysarthria: Normal - Extinction and Inattention Extinction and Inattention: Normal - NIHSS Total Score NIHSS Total Score: 0 TPA Checklist - LKW: 3-4.5 hrs Add. Warnings/Precautions Patient/family understanding: The patient/family members have been counseled and understood the risk, benefit , and alternatives of treatment.
[2017-11-27 14:34] LABS: Basophils % 0.2 %; Eosinophils % 0.2 %; Hemoglobin 14.3 g/dL (12.9-16.9); Immature Granulocytes % 0.3 % (0-4); Lymphocytes # 1.8 K/mcL (0.6-4.6); Lymphocytes % 18.5 %; Mean Corpuscular Hemoglobin 32.1 pg (28.0-33.3); Mean Corpuscular Volume 94.4 fL (83.0-100.0); Mean Platelet Volume 9.1 fL (9.4-12.4); Monocytes # 0.4 K/mcL (0.0-1.3); Monocytes % 4.5 %; Neutrophils # 7.3 K/mcL (1.6-8.9); Platelet Count 302 K/mcL (140-400); Red Blood Count 4.45 M/mcL (4.19-5.50); Red Cell Distribution Width 12.6 % (11.5-14.5); Segmented Neutrophils % 76.3 %
--- NOTE | 2017-11-27 14:41 | Emergency Department Note ---
Disposition Clinical Impression: Delirium, Generalized weakness Disposition: Admitted As Inpatient Condition: Undetermined General Adult HPI - General Chief complaint: ED Neuro Symptoms/Deficit Stated complaint: weakness Time Seen by Provider: 11/27/17 14:16 Source: patient, family, EMS Mode of arrival: EMS Limitations: altered mental status (Mild) - Related Data Home Medications Medication Instructions Recorded Confirmed Aripiprazole [Abilify] 7.5 mg PO DAILY 01/23/17 11/27/17 Calcium Carbonate/Vitamin D3 1 each PO BID 01/23/17 11/27/17 [Oyster Shell Calcium-Vit D Tab] Metformin HCl [Fortamet] 1,000 mg PO QPM 01/23/17 11/27/17 Metoprolol Succinate 25 mg PO DAILY 01/23/17 11/27/17 Omeprazole 20 mg PO DAILY 01/23/17 11/27/17 Duloxetine HCl [Cymbalta] 120 mg PO DAILY 10/19/17 11/27/17 Gemfibrozil [Lopid] 600 mg PO BID 10/19/17 11/27/17 Lactobacillus Acidophilus 1 cap PO BID 10/20/17 11/27/17 [Acidophilus Lactobacillus] Lisinopril-HCTZ 10-12.5 [Prinzide 1 tab PO DAILY 10/20/17 11/27/17 10-12.5] Nitroglycerin [Nitrostat] 0.4 mg SL Q5M PRN 10/20/17 11/27/17 Aspirin Enteric Coated [Aspirin EC] 81 mg PO DAILY 11/27/17 11/27/17 Cholecalciferol (D-3) [Vitamin D] 1,000 unit PO DAILY 11/27/17 11/27/17 Donepezil [Aricept] 10 mg PO HS 11/27/17 11/27/17 Eszopiclone [Lunesta] 1 mg PO HS PRN 11/27/17 11/27/17 Gabapentin [Neurontin] 900 mg PO TID 11/27/17 11/27/17 Levothyroxine [Synthroid] 150 mcg PO QAM 11/27/17 11/27/17 Lidocaine 4% CRM (LMX) [Lmx 4] 1 appl TP DAILY PRN 11/27/17 11/27/17 Multivitamin [One Daily Essential] 1 each PO DAILY 11/27/17 11/27/17 OxyCODONE Immed Rel [Roxicodone 10 10 mg PO QID PRN 11/27/17 11/27/17 MG] Polyethylene Glycol 3350 [MiraLAX] 17 gm PO DAILY 11/27/17 11/27/17 Testosterone [Androgel] 40.5 mg TD AD 11/27/17 11/27/17 glipiZIDE [Glipizide] 10 mg PO QAM 11/27/17 11/27/17 Previous Rx's Medication Instructions Recorded Clopidogrel [Plavix] 75 mg PO DAILY #30 tablet 01/24/17 Allergies Allergy/AdvReac Type Severity Reaction Status Date / Time bupropion [From Wellbutrin] Allergy See Verified 11/27/17 16:47 Comments Zolpidem [From Ambien] Allergy See Verified 11/27/17 16:47 Comments midazolam [From Versed] AdvReac See Verified 01/23/17 07:45 Comments morphine AdvReac Nausea Verified 11/27/17 16:47 Constitutional: Reports: weakness. Denies: fever, chills ENT ED: Denies: congestion Cardiovascular: Denies: chest pain Respiratory: Denies: dyspnea Gastrointestinal: Denies: abdominal pain, nausea Genitourinary: Reports: dysuria, frequency. Denies: urgency, hematuria, testicular pain Musculoskeletal: Denies: back pain, neck pain, arthralgia, myalgia Integumentary: Denies: rash Neurological: Reports: weakness, confusion. Denies: headache, numbness, paresthesias, abnormal gait, vertigo Psychiatric: Reports: anxiety, depression. Denies: suicidal thoughts, homicidal thoughts, auditory hallucinations, visual hallucinations Past Medical History - Past Medical History Medical history: Reports: aortic aneurysm, diabetes, hypertension, thyroid disease Surgical history: Reports: non-contributory Psychiatric history: Reports: anxiety, depression - Social History Smoking Status: Former smoker Smokeless Tobacco Status: No Alcohol use: Reports: none Drug use: Reports: none Physical Exam - General Limitations: altered mental status (Mild) General appearance: alert, in no apparent distress, anxious Course Vital Signs Temperature 97.8 F 11/27/17 14:15 Pulse Rate 99 11/27/17 14:15 Respiratory Rate 16 11/27/17 14:15 Blood Pressure 148/86 04/12/18 14:15 O2 Sat by Pulse Oximetry 94 11/27/17 14:15 Temperature 98.1 F 11/27/17 18:23 Pulse Rate 84 11/27/17 18:23 Respiratory Rate 16 11/27/17 18:23 Blood Pressure 158/93 11/27/17 18:23 O2 Sat by Pulse Oximetry 94 11/27/17 18:23 Oxygen Delivery Oxygen Delivery Room Air Medical Decision Making - Lab Data Result diagrams: 11/27/17 14:26 11/27/17 14:26 Lab Results 11/27/17 11/27/17 11/27/17 Range/Units 14:26 14:26 15:33 WBC 9.5 (4.3-11.1) K/mcL RBC 4.45 (4.19-5.50) M/mcL Hgb 14.3 (12.9-16.9) g/dL Hct 42.0 (37.5-50.1) % MCV 94.4 (83.0-100.0) fL MCH 32.1 (28.0-33.3) pg MCHC 34.0 (31.6-35.5) g/dL RDW 12.6 (11.5-14.5) % Plt Count 302 (140-400) K/mcL MPV 9.1 L (9.4-12.4) fL Immature Gran % 0.3 (0-4) % Seg Neutrophils % 76.3 % Lymphocytes % 18.5 % Monocytes % 4.5 % Eosinophils % 0.2 % Basophils % 0.2 % Neutrophils # 7.3 (1.6-8.9) K/mcL Lymphocytes # 1.8 (0.6-4.6) K/mcL Monocytes # 0.4 (0.0-1.3) K/mcL Eosinophils # 0.0 (0.0-0.6) K/mcL Basophils # 0.0 (0.0-0.2) K/mcL Sodium 140 (136-145) mEq/L Potassium 4.0 (3.5-5.1) mEq/L Chloride 105 (98-107) mEq/L Carbon Dioxide 26 (23-29) mEq/L BUN 14 (8-23) mg/dL Creatinine 0.74 (0.70-1.30) mg/dL Est GFR ( Amer) > 60 (> 60) Est GFR (Non-Af Amer) > 60 (> 60) BUN/Creatinine Ratio 19 (6-26) Glucose 153 H (70-105) mg/dL Calculated Osmolality 294 (280-300) Calcium 9.9 (8.6-10.3) mg/dL Troponin I < 0.03 (< 0.04) ng/mL Urine Color Yellow (Yellow) Urine Clarity Cloudy A (Clear) Urine pH 7.0 (5.0-8.0) pH Units Ur Specific [place] 1.020 (1.010-1.025) Urine Protein Trace (Neg-Trace) mg/dL Urine Glucose (UA) Normal (Normal) mg/dL Urine Ketones Negative (Negative) mg/dL Urine Blood Negative (Negative) Urine Nitrite Negative (Negative) Urine Bilirubin Negative (Negative) Urine Urobilinogen Normal (Normal) mg/dL Ur Leukocyte Esterase Negative (Negative) Urine Microscopic RBC 3-5 H (0-3) per hpf Urine Microscopic WBC 0-3 (0-3) per hpf Ur Squamous Epith Cells Few (None-Few) per lpf Urine Bacteria None Seen (None-Few) per hpf Hyaline Casts None Seen (None-Few) per lpf Ur Culture Indicated? NO (NO) Attestation Statement - Attestation Attestation: I examined this patient and my medical decision-making was reviewed with the INVENTORY ASSISTANT/PA/Advanced Practice Nurse/Resident Physician. I agree with the documented findings, disposition and treatment plan as described except to the extent set forth below. I did see the patient spoke with him and examine home and the stories that he does have some mild cognitive problems and the patient was in bed this morning at 1:00 and his decided to wake him up but she was unable to arouse him and called the paramedics. He does not remember this episode. The patient denies any specific complaints at this time. Is back to baseline. The patient is able to lift his arms and legs without difficulty. I do not see any facial asymmetry. Does have testing pending including CT scan of the brain. Patient said he would not mind if he "checked out" however he is not actively suicidal. No history of suicide attempt. No plan for ending his life. He is here with his and his son. [id number] I did review the EKG showing normal sinus rhythm with rate of 94 and without acute ischemic change. Does have evidence of first-degree AV block. [id number]
[2017-11-27 15:03] LABS: BUN/Creatinine Ratio 19 (6-26); Blood Urea Nitrogen 14 mg/dL (8-23); Calcium 9.9 mg/dL (8.6-10.3); Carbon Dioxide 26 mEq/L (23-29); Chloride 105 mEq/L (98-107); Glucose 153 mg/dL (70-105); Osmolality,Calculated 294 (280-300); Sodium 140 mEq/L (136-145); Troponin I < 0.03 ng/mL (< 0.04); eGFR For African Americans > 60 (> 60); eGFR For Non-African Americans > 60 (> 60)
[2017-11-27 16:03] LABS: Bilirubin,Urine Negative (Negative); Blood,Urine Negative (Negative); Clarity,Urine Cloudy (Clear); Color,Urine Yellow (Yellow); Glucose,Urine (UA) Normal (Normal); Ketones,Urine Negative (Negative); Leukocyte Esterase,Urine Negative (Negative); Nitrite,Urine Negative (Negative); Protein,Urine Trace mg/dL (Neg-Trace); Urobilinogen,Urine Normal (Normal)
[2017-11-27 16:06] LABS: Bacteria,Urine None Seen per hpf (None-Few); Hyaline Casts,Urine None Seen per lpf (None-Few); Squamous Epithelial Cell,Urine Few per lpf (None-Few); WBC,Urine 0-3 per hpf (0-3)
[2017-11-27] MEDS ORDERED: Acetaminophen 325 MG TABLET PO PRN (21:11)
[2017-11-27] MEDS ORDERED: Naloxone 0.4 MG/ML INJ IVP PRN (21:11)
[2017-11-27] MEDS ORDERED: D5% in Water 1,000 ML IVC PRN (21:15)
[2017-11-27] MEDS ORDERED: *HR* OxyCODONE Immed Rel 5 MG TABLET PO PRN (21:15)
[2017-11-27] MEDS ORDERED: Nitroglycerin 0.4 MG TAB.SUBL SL PRN (21:15)
[2017-11-27] MEDS ORDERED: *HR* Dextrose 50 % in Water (Syg) 50 ML SYRINGE IVP PRN (21:15)
[2017-11-27] MEDS ORDERED: Lidocaine 4% CREAM (LMX) 5 GM TP PRN (21:15)
[2017-11-27] MEDS ORDERED: Dextrose Gel 15 GM/37.5 ML TUBE PO PRN ×2 (21:15)
--- NOTE | 2017-11-27 22:07 | Internal Med History&Physical ---
Date of Encounter: 11/27/17 Time of Encounter: 20:00 Internal Medicine - H&P: HPI Chief complaint: Altered mental status Admitted From: Home Plans for Post Hospital Care: Home History of present illness: Mr. Maxwell is a 67 year old male presented to ER for altered mental status since this morning. Possible medical history is significant for diabetes, hypertension, CAD S/P stent, chronic pain S/P back surgery. Patient is said he was sent to ER because his for cannot wake him up in the morning. His and nonresponsive. It lasted about half hour. Patient has mild dizziness. And a whole-body weakness. Denies headache, fever, nausea. Patient has no shaking or seizure-like activity, denies urinary or fecal incontinence. Patient has no slurred speech. He has unsteady gait earlier today but completely back to baseline now. Patient denies taking pain medications before nonresponsive in the morning. In the emergency room, he has no hypoglycemia or hypotension. CT head negative. Patient has no signs of infection, chest x-ray and UA negative. Patient was admitted for further management. Past Med Surg Social Fam HX - Past Medical History Medical history: aortic aneurysm, diabetes, hypertension, thyroid disease Psychiatric history: anxiety, depression - Past Surgical History Surgical History: non-contributory - Social History Smoking Status: Former smoker Smokeless Tobacco Status: No Alcohol use: none Drug use: none - Family History Father Living Status: Hx Family Cardiac Disorders: Yes ([place]) Mother Living Status: Hx Family Cardiac Disorders: Yes Hx Family Neuromuscular Disorders: Yes (Stroke) Brother Living Status: Hx Family Endocrine Disorder: Yes Internal Medicine - H&P: Meds Aripiprazole [Abilify] 7.5 mg PO DAILY 01/23/17 [History] Calcium Carbonate/Vitamin D3 [Oyster Shell Calcium-Vit D Tab] 1 each PO BID 04/03 [History] Metformin HCl [Fortamet] 1,000 mg PO QPM 01/23/17 [History] Metoprolol Succinate 25 mg PO DAILY 01/23/17 [History] Omeprazole 20 mg PO DAILY 01/23/17 [History] Clopidogrel [Plavix] 75 mg PO DAILY #30 tablet 01/24/17 [Rx] Duloxetine HCl [Cymbalta] 120 mg PO DAILY 10/19/17 [History] Gemfibrozil [Lopid] 600 mg PO BID 10/19/17 [History] Lactobacillus Acidophilus [Acidophilus Lactobacillus] 1 cap PO BID 10/20/17 [ History] Lisinopril-HCTZ 10-12.5 [Prinzide 10-12.5] 1 tab PO DAILY 10/20/17 [History] Nitroglycerin [Nitrostat] 0.4 mg SL Q5M PRN 10/20/17 [History] Aspirin Enteric Coated [Aspirin EC] 81 mg PO DAILY 11/27/17 [History] Cholecalciferol (D-3) [Vitamin D] 1,000 unit PO DAILY 11/27/17 [History] Donepezil [Aricept] 10 mg PO HS 11/27/17 [History] Eszopiclone [Lunesta] 1 mg PO HS PRN 11/27/17 [History] Gabapentin [Neurontin] 900 mg PO TID 11/27/17 [History] Levothyroxine [Synthroid] 150 mcg PO QAM 11/27/17 [History] Lidocaine 4% CRM (LMX) [Lmx 4] 1 appl TP DAILY PRN 11/27/17 [History] Multivitamin [One Daily Essential] 1 each PO DAILY 11/27/17 [History] OxyCODONE Immed Rel [Roxicodone 10 MG] 10 mg PO QID PRN 11/27/17 [History] Polyethylene Glycol 3350 [MiraLAX] 17 gm PO DAILY 11/27/17 [History] Testosterone [Androgel] 40.5 mg TD AD 11/27/17 [History] glipiZIDE [Glipizide] 10 mg PO QAM 11/27/17 [History] 3 Allergy/AdvReac Type Severity Reaction Status Date / Time bupropion [From Wellbutrin] Allergy See Verified 11/27/17 16:47 Comments Zolpidem [From Ambien] Allergy See Verified 11/27/17 16:47 Comments midazolam [From Versed] AdvReac See Verified 01/23/17 07:45 Comments morphine AdvReac Nausea Verified 11/27/17 16:47 All Systems PM: A 10-system review of systems was performed and is negative for pertinent findings except as documented above in the HPI. - Constitutional Vitals: Temp Pulse Resp BP Pulse Ox 98.4 F 96 16 157/92 95 11/27/17 21:11 11/27/17 21:11 11/27/17 21:11 11/27/17 21:11 11/27/17 21:11 General appearance: Present: A&O X 3, no acute distress, answers questions appropriately - Head Head exam: Present: atraumatic, normocephalic - Eye Eye exam: Present: PERRL, conjuntiva pink, sclera anicteric Pupils: Present: PERRL - Neck Neck exam general surgery: Present: supple, trachea midline. Absent: lymphadenopathy - Respiratory Respiratory exam: Present: CTAB. Absent: accessory muscle use, rales, rhonchi, wheezes - Cardiovascular Cardiovascular exam: Present: RRR, +S1, +S2. Absent: diastolic murmur, gallop, rubs, systolic murmur - GI/Abdominal GI/Abdominal exam: Present: normal bowel sounds, soft, no peritoneal signs. Absent: distended, tenderness - Extremities Exam Extremities exam: Present: warm, radial pulses palpable and symmetrical. Absent : calf tenderness, cyanotic, pedal edema - Neurological Exam Neurological exam: Present: CN II-XII intact, oriented X3, no focal deficits. Absent: pronater drift, facial droop, speech deficit - Skin Skin exam: Present: dry, intact Internal Med - H&P Results - Labs CBC & Chem 7: 11/27/17 14:26 11/27/17 14:26 - Assessment and plan (1) Syncope Current Visit: Yes Status: Acute Assessment and plan: Patient has a short period of loss of consciousness. Etiology is undetermined. Patient has no focal neuro deficit and symptoms resolved completely now. CT head negative. - Place patient on continuous cardiac monitoring to rule out arrhythmia - Echo and duplex carotid bilaterally - Orthostatic vitals - Continue closely monitor patient Qualifiers: Syncope type: unspecified Qualified Code(s): R55 - Syncope and collapse (2) CAD (coronary artery disease) Current Visit: No Status: Acute Assessment and plan: Denies chest pain. Continue home medications Qualifiers: Coronary Disease-Associated Artery/Lesion type: [place] artery [place] vs. transplanted heart: [place] heart Associated angina: without angina Qualified Code(s): I25.10 - Atherosclerotic heart disease of [place] coronary artery without angina pectoris (3) DVT prophylaxis Current Visit: No Status: Acute Assessment and plan: Heparin subcutaneously (4) Diabetes mellitus Current Visit: No Status: Chronic Assessment and plan: Place patient on insulin sliding scale. Closely monitor glucose level Qualifiers: Diabetes mellitus type: type 2 Diabetes mellitus half-way insulin use: without half-way use Diabetes mellitus complication status: without complication Qualified Code(s): E11.9 - Type 2 diabetes mellitus without complications (5) Hypertension Current Visit: No Status: Chronic Assessment and plan: Continue home medications Qualifiers: Hypertension type: essential hypertension Qualified Code(s): I10 - Essential (primary) hypertension - Time Spent With Patient Total time spent is greater than 50% in coordination of care (as documented) at patient's floor/unit and/or counseling patient: 40 minutes Greater than 35 minutes
[2017-11-28 02:26] LABS: Basophils % 0.3 %; Eosinophils # 0.1 K/mcL (0.0-0.6); Eosinophils % 0.4 %; Immature Granulocytes % 0.5 % (0-4); Lymphocytes # 2.9 K/mcL (0.6-4.6); Lymphocytes % 24.8 %; Mean Corpuscular HGB Conc 34.1 g/dL (31.6-35.5); Mean Corpuscular Hemoglobin 32.2 pg (28.0-33.3); Mean Corpuscular Volume 94.3 fL (83.0-100.0); Mean Platelet Volume 9.4 fL (9.4-12.4); Monocytes # 0.7 K/mcL (0.0-1.3); Monocytes % 6.2 %; Platelet Count 334 K/mcL (140-400); Red Blood Count 4.35 M/mcL (4.19-5.50); Red Cell Distribution Width 12.6 % (11.5-14.5); Segmented Neutrophils % 67.8 %
[2017-11-28 02:46] LABS: BUN/Creatinine Ratio 18 (6-26); Blood Urea Nitrogen 14 mg/dL (8-23); Calcium 9.6 mg/dL (8.6-10.3); Carbon Dioxide 26 mEq/L (23-29); Chloride 107 mEq/L (98-107); Glucose 162 mg/dL (70-105); Magnesium 2.1 mg/dL (1.6-2.6); Osmolality,Calculated 296 (280-300); Potassium 3.7 mEq/L (3.5-5.1); Sodium 141 mEq/L (136-145); eGFR For African Americans > 60 (> 60); eGFR For Non-African Americans > 60 (> 60)
[2017-11-28] MEDS: *HR* Heparin 5,000 UNIT/ML VIAL SQ SCH ×2 (06:41→16:01)
[2017-11-28] MEDS ORDERED: Cholecalciferol (D-3) 1,000 UNIT TABLET PO SCH (09:00)
[2017-11-28] MEDS ORDERED: Metoprolol XL (24 HR) Succ 25 MG TAB.ER.24H PO SCH (09:00)
[2017-11-28] MEDS ORDERED: Aspirin Enteric Coated 81 MG Tablet PO SCH (09:00)
[2017-11-28] MEDS ORDERED: Lactobacillus 1 EACH CAP.SPRINK PO SCH (09:00)
[2017-11-28] MEDS ORDERED: ARIPiprazole 5 MG TABLET PO SCH (09:00)
[2017-11-28] MEDS ORDERED: Multivit/Ca/Min/Fe/FA 1 TAB TABLET PO SCH (09:00)
[2017-11-28] MEDS: Insulin LISPRO 300 UNITS/3 ML VIAL SQ SCH ×2 (09:05→12:01)
[2017-11-28] MEDS: Gabapentin 300 MG CAPSULE PO SCH ×2 (10:38→16:01)
[2017-11-28 15:51] VITALS: BP 151/90
--- NOTE | 2017-11-28 17:03 | Discharge Summary ---
- NOTES TO OUTPATIENT PROVIDER Notes to Outpatient Provider: Patient will follow up with primary care provider to complete sleep study initiated. Also follow-up with scheduled neurology appointment for management of Parkinson's Date of Encounter: 11/28/17 Time of Encounter: 16:00 - Discharge Diagnosis (1) CAD (coronary artery disease) Priority: Secondary Status: Acute Qualifiers: Coronary Disease-Associated Artery/Lesion type: [place] artery [place] vs. 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 reports that she had difficulty arousing patient therefore called EMS. When EMS arrived patient was responsive and needed assisted ambulating. Patient was brought to the ER for further evaluation. During evaluation in the ER patient was found to be alert and oriented without any signs of confusion. Patient was admitted overnight for observation. During patients hospital stay he had no further episodes of difficulty arousing or altered mental status. CT of the head showed no acute findings and echocardiogram showed LVEF of 65% with mild left ventricular diastolic dysfunction. Carotid Dopplers was also done which showed nonstenotic plaque bilaterally. Patient will be discharged to follow-up with primary care provider and neurologist as an outpatient for Parkinson - Time Spent with Patient Total time spent providing and/or coordinating discharge services: Less than 30 minutes - Discharge Medications Home Medications: Aripiprazole [Abilify] 7.5 mg PO DAILY 01/23/17 [History] Calcium Carbonate/Vitamin D3 [Oyster Shell Calcium-Vit D Tab] 1 each PO BID 04/03 [History] Metformin HCl [Fortamet] 1,000 mg PO QPM 01/23/17 [History] Metoprolol Succinate 25 mg PO DAILY 01/23/17 [History] Omeprazole 20 mg PO DAILY 01/23/17 [History] Clopidogrel [Plavix] 75 mg PO DAILY #30 tablet 01/24/17 [Rx] Duloxetine HCl [Cymbalta] 120 mg PO DAILY 10/19/17 [History] Gemfibrozil [Lopid] 600 mg PO BID 10/19/17 [History] Lactobacillus Acidophilus [Acidophilus Lactobacillus] 1 cap PO BID 10/20/17 [ History] Lisinopril-HCTZ 10-12.5 [Prinzide 10-12.5] 1 tab PO DAILY 10/20/17 [History] Nitroglycerin [Nitrostat] 0.4 mg SL Q5M PRN 10/20/17 [History] Aspirin Enteric Coated [Aspirin EC] 81 mg PO DAILY 11/27/17 [History] Cholecalciferol (D-3) [Vitamin D] 1,000 unit PO DAILY 11/27/17 [History] Donepezil [Aricept] 10 mg PO HS 11/27/17 [History] Eszopiclone [Lunesta] 1 mg PO HS PRN 11/27/17 [History] Gabapentin [Neurontin] 900 mg PO TID 11/27/17 [History] Levothyroxine [Synthroid] 150 mcg PO QAM 11/27/17 [History] Lidocaine 4% CRM (LMX) [Lmx 4] 1 appl TP DAILY PRN 11/27/17 [History] Multivitamin [One Daily Essential] 1 each PO DAILY 11/27/17 [History] OxyCODONE Immed Rel [Roxicodone 10 MG] 10 mg PO QID PRN 11/27/17 [History] Polyethylene Glycol 3350 [MiraLAX] 17 gm PO DAILY 11/27/17 [History] Testosterone [Androgel] 40.5 mg TD AD 11/27/17 [History] glipiZIDE [Glipizide] 10 mg PO QAM 11/27/17 [History] Allergies/Adverse Reactions: 3 Allergy/AdvReac Type Severity Reaction Status Date / Time bupropion [From Wellbutrin] Allergy See Verified 11/27/17 16:47 Comments Zolpidem [From Ambien] Allergy See Verified 11/27/17 16:47 Comments midazolam [From Versed] AdvReac See Verified 01/23/17 07:45 Comments morphine AdvReac Nausea Verified 11/27/17 16:47 Date of admission: 11/27/17 17:42 [facility] care physician: [facility] Consults: 11/27/17 18:34 Consult to Nutrition [CONS] Routine Comment: Consulting Provider: NUTRITION Reason for Dietary Consult: MST Score - Constitutional Vitals: Temp Pulse Resp BP Pulse Ox 98.5 F 82 18 151/90 95 11/28/17 15:50 11/28/17 15:50 11/28/17 15:50 11/28/17 15:50 11/28/17 15:50 General appearance: Present: A&O X 3, no acute distress, answers questions appropriately - Patient Status Disposition: Home, Self-Care Condition: Undetermined - Discharge Instructions Follow Up With: [facility] [Primary Care Provider] - Additional Instructions: Follow-up appointments: If there is not an appointment listed below, please call your physician and schedule a follow-up appointment. If you have congestive heart failure and your symptoms return, make an appointment with your physician. Medication List: Carry an up to date list of medications you are taking at all time. We have given you an updated medication list including any new medications that you have been prescribed. Please provide that list to your primary provider Symptoms: If your condition changes or you experience any of the following symptoms, notify your physician immediately: Unusual or worsening pain, fever, persistent nausea and vomiting, bleeding, increase in swelling (especially in your legs), sudden weight gain, extreme dizziness, chest pain, increased drainage or redness from a wound or incision. Go to the emergency department if you experience a problem with breathing. Weights: If you have a history of swelling or shortness of breath, weigh yourself daily and notify your physician if you have a weight gain of two or more pounds in one day or 5 or more pounds in a week. If you experience any of the warning signs for stroke: Sudden numbness or weakness of the face, arm or leg; especially on one side of the body, sudden confusion, trouble speaking or understanding, sudden trouble seeing in one or both eyes, sudden trouble walking, dizziness, loss of balance or coordination, sudden sever headache with no cause; Call 911 or go to the emergency room. Stroke is a medical emergency. Some risk factors for stroke: Age, cigarette smoking, diabetes, excessive alcohol consumption, family history , high blood pressure, overweight, physical inactivity, prior stroke, heart attack, diagnosis of carotid artery stenosis or other artery disease. If you smoke, STOP: Smoking or tobacco use significantly increases your risk of heart and lung disease. Your chance of disease greatly increases if you continue to smoke. For more information, call the [place] tobacco quit line for smoking cessation 0411 QUIT-NOW ( )
[2017-11-28] MEDS ORDERED: Insulin LISPRO 300 UNITS/3 ML VIAL SQ SCH (21:00)
--- NOTE | 2017-11-29 07:05 | Electrocardiograph Report ---
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
== END 2017-11-28 17:52 | disposition home or self-care (01) ==
LOC: EMEROO 14:14 → 3NENU 14:14 → SUATTDRO 17:42 → 3NENU 18:09
PROVIDERS: ADMIT Internal Medicine; ATTEND Hospitalist